=== PATIENT | female | born 1990 | race Two or more races ===

== ENCOUNTER 2023-03-24 19:46 | Inpatient (IN) | payer OTHER ==
[~2023-03-24] VITALS: Ht 165.1 cm; Wt 72.6 kg
[2023-03-24] MEDS ORDERED: MOUNJARO5 MG/0.5 M SQ (19:48)
[2023-03-24] MEDS ORDERED: FAMOTIDINE40 MG PO (19:48)
[2023-03-24] MEDS ORDERED: SPIRONOLACTONE100 MG PO (19:49)
[2023-03-24] MEDS ORDERED: DULOXETINE HCL30 MG PO (19:49)
[2023-03-24 21:08] LABS: HEMATOCRIT 38.6 % (36.0-45.00); HEMOGLOBIN 13.1 g/dL (12.0-15.00); MEAN CELL VOLUME 90.4 fL (80.00-100.00); MEAN CORPUSCULAR HEMOGLOBIN 30.6 pg (27.00-32.0); MEAN CORPUSCULAR HGB CONC 33.9 g/dl (32.0-36.0); PLATELET COUNT 351 K/uL (150-450); RED BLOOD COUNT 4.27 M/uL (4.00-6.00); RED CELL DISTRIBUTION WIDTH 13.9 % (11.5-14.5)
[2023-03-24 21:36] LABS: ALBUMIN 3.6 gm/dL (3.4-5.0); BILIRUBIN TOTAL 0.4 mg/dL (0.3-1.2); CALCIUM 8.9 mg/dL (8.5-10.1); CREATININE SERUM 0.87 mg/dL (0.55-1.02); GFR 74.53; GLOBULINA 4.2 G/DL (2.4-3.5); POTASSIUM 3.66 mEq/L (3.5-5.1); TOTAL PROTEIN 7.8 gm/dL (6.4-8.2)
[2023-03-25 04:17] LABS: HEMOGLOBIN 12.3 g/dL (12.0-15.00); MEAN CELL VOLUME 90.4 fL (80.00-100.00); MEAN CORPUSCULAR HEMOGLOBIN 30.8 pg (27.00-32.0); MEAN CORPUSCULAR HGB CONC 34.1 g/dl (32.0-36.0); PLATELET COUNT 343 K/uL (150-450); RED BLOOD COUNT 3.98 M/uL (4.00-6.00); RED CELL DISTRIBUTION WIDTH 13.6 % (11.5-14.5)
[2023-03-25 04:31] LABS: PARTIAL THROMBOPLASTIN TIME 26.5 SECONDS (22.0-34.0)
[2023-03-25 04:36] LABS: ALBUMIN 3.3 gm/dL (3.4-5.0); BILIRUBIN TOTAL 0.38 mg/dL (0.3-1.2); CALCIUM 8.5 mg/dL (8.5-10.1); CREATININE SERUM 0.78 mg/dL (0.55-1.02); GFR 84.54; POTASSIUM 4.06 mEq/L (3.5-5.1); TOTAL PROTEIN 7.3 gm/dL (6.4-8.2)
== END 2023-03-27 13:32 | disposition home or self-care (01) | DRG 418 ==
LOC: ER 19:46 → SEC-K 03-25 00:10 → SURH 03-25 00:10 → MEDJ 03-25 01:42 → SURH 03-25 10:00
PROVIDERS: General Practice; Surgery; ADMIT Internal Medicine; ATTEND Internal Medicine
PROC: BW20ZZZ Computerized Tomography (CT Scan) of Abdomen (ICD-10-PCS; 2023-03-24)
PROC: BF522Z0 Other Imaging of Gallbladder using Fluorescing Agent, Intraoperative (ICD-10-PCS; 2023-03-26)
PROC: 0FT44ZZ Resection of Gallbladder, Percutaneous Endoscopic Approach (ICD-10-PCS; principal; 2023-03-26 18:00)
DX: K80.20 Calculus of gallbladder without cholecystitis without obstruction (principal); K90.49 Malabsorption due to intolerance, not elsewhere classified; D72.829 Elevated white blood cell count, unspecified